=== PATIENT | male | born 1985 | race Two or more races ===

== ENCOUNTER 2017-09-02 19:27 | Emergency (ER) | payer OTHER ==
[~2017-09-02] VITALS: Ht 180.3 cm; Wt 104.3 kg
[2017-09-02] MEDS ORDERED: ABACAVIR-LAMIV1 EACH PO (22:30)
== END 2017-09-03 00:17 | disposition home or self-care (01) ==
LOC: ER 19:27
DX: S50.812A Abrasion of left forearm, initial encounter (principal); W46.0XXA Contact with hypodermic needle, initial encounter; Y93.89 Activity, other specified; Y92.69 Other specified industrial and construction area as the place of occurrence of the external cause; Y99.8 Other external cause status